=== PATIENT | female | born 1980 | race Caucasian/White ===

== ENCOUNTER 2019-06-02 19:47 | Emergency (ER) | payer MEDICAID ==
[~2019-06-02] VITALS: Ht 175.3 cm; Wt 102.3 kg
[2019-06-02 19:52] VITALS: Ht 175.3 cm; Wt 102.3 kg
[2019-06-02] MEDS ORDERED: HYDROXYZINE HCL10 MG (19:53)
[2019-06-02] MEDS ORDERED: HYDROCHLOROTHIA25 MG PO (19:53)
[2019-06-02] MEDS ORDERED: GLUCOPHAGE500 MG PO (19:53)
[2019-06-02] MEDS ORDERED: GLUCOTROL 5 MG T5 MG PO (19:53)
[2019-06-02] MEDS ORDERED: LISINOPRIL10 MG (19:53)
[2019-06-02] MEDS ORDERED: ULTRAM50 MG PO (21:35)
[2019-06-02 22:05] VITALS: BP 119/67
== END 2019-06-02 22:05 | disposition home or self-care (01) ==
LOC: D.ER 19:47
DX: M51.36 Other intervertebral disc degeneration, lumbar region (principal); G89.29 Other chronic pain